=== PATIENT | female | born 1950 | race Caucasian/White ===

== ENCOUNTER 2019-10-17 12:45 | Outpatient (CLI) | payer MEDICARE, SELFPAY ==
--- NOTE | ~2019-10-17 | XR_ITS ---
EXAMINATION: XR chest 2V 10/17/2019 13:15 INDICATION: Acute bronchitis PROCEDURE: 2 view chest COMPARISON: No prior studies for comparison. FINDINGS: The lungs are clear. The lungs are hyperinflated which is consistent with, but not diagnost ic of chronic obstructive pulmonary disease. The cardiomediastinal silhouette is within normal limits . There are no pleural effusions. There is no pneumothorax suspected. IMPRESSION: 1: NO ACUTE CARDIOPULMONARY DISEASE. Reviewed, dictated and finalized at location [facility].
[2019-10-17 13:42] LABS: Basophils Absolute Auto 0.1 K/mm3 (0.0-0.1); Basophils Percent Auto 0.6 % (0.2-1.2); Eosinophils Absolute Auto 0.1 K/mm3 (0-0.3); Eosinophils Percent Auto 1.3 % (0-4.4); Hematocrit 40.2 % (37.0-47.0); Hemoglobin 13.2 g/dL (12.0-15.0); Immature Granulocyte Absolute 0.04 K/mm3 (0.00-0.031); Immature Granulocyte Percent A 0.4 % (0-0.5); Lymphocytes Absolute Auto 2.97 K/mm3 (0.9-3.2); Lymphocytes Percent Auto 27.1 % (18.3-44.2); Mean Corpuscular HGB Conc 32.8 g/dl (32-36); Mean Corpuscular Volume 94.4 fl (80-100); Mean Platelet Volume 9.4 fl (7.4-10.4); Monocytes Percent Auto 8.8 % (2.6-8.5); Neutrophils Absolute Auto 6.8 K/mm3 (1.3-6.7); Neutrophils Percent Auto 61.8 % (45.5-73.1); Platelet Count Result 335 k/mm3 (150-375); Red Blood Count 4.26 M/mm3 (4.2-5.4); Red Cell Distribution Width 12.6 % (11.5-14.5)
== END 2019-10-17 12:46 | disposition home or self-care (01) ==
LOC: ANHIMG 12:57
PROVIDERS: PCP Family Medicine; Visit Provider Physician Assistant
DX: J20.8 Acute bronchitis due to other specified organisms (principal)
CPT/HCPCS: 36415; 71046; 85025

== ENCOUNTER 2020-03-25 10:33 | Outpatient (CLI) | payer MEDICARE, SELFPAY ==
[2020-03-25 11:01] LABS: Hemoglobin 14.3 g/dL (12.0-15.0); Mean Corpuscular HGB Conc 33.3 g/dl (32-36); Mean Corpuscular Hemoglobin 31.5 pg (26-34); Mean Corpuscular Volume 94.7 fl (80-100); Mean Platelet Volume 9.3 fl (7.4-10.4); Platelet Count Result 283 k/mm3 (150-375); Red Blood Count 4.54 M/mm3 (4.2-5.4); Red Cell Distribution Width 12.8 % (11.5-14.5); White Blood Count 7.5 K/mm3 (4.5-10.0)
[2020-03-25 11:20] LABS: Alanine Aminotransferase 18 U/L (4-35); Albumin Level 4.5 g/dL (3.5-5.1); Alkaline Phosphatase 95 U/L (38-126); Amylase 85 U/L (30-110); Anion Gap 7 mmol/L (8-16); Aspartate Amino Transferase 26 U/L (14-36); Bilirubin,Total 0.4 mg/dL (0.2-1.3); Blood Urea Nitrogen 12 mg/dL (7-17); Calcium 9.3 mg/dL (8.4-10.2); Carbon Dioxide 29 mmol/L (22-30); Chloride 103 mmol/L (98-107); Estimated Glomerular Filt Rate > 60; Glucose 102 mg/dL (65-105); Potassium 4.4 mmol/L (3.4-5.0); Sodium 139 mmol/L (137-145)
== END 2020-03-25 10:34 | disposition home or self-care (01) ==
PROVIDERS: PCP Family Medicine; Visit Provider Internal Medicine Gastroenterology
DX: R10.13 Epigastric pain (principal); R63.4 Abnormal weight loss
CPT/HCPCS: 36415; 80053; 82150; 85027

== ENCOUNTER 2020-04-13 01:18 | Outpatient (CLI) | payer MEDICARE, SELFPAY ==
[2020-04-13 18:13] LABS: SARS-CoV-2 RNA PCR Negative
== END 2020-04-13 01:19 | disposition home or self-care (01) ==
LOC: ANHCOVIDDT 01:18
PROVIDERS: PCP Family Medicine; Visit Provider Internal Medicine Gastroenterology
DX: Z01.812 Encounter for preprocedural laboratory examination (principal); Z20.828 Contact with and (suspected) exposure to other viral communicable diseases
CPT/HCPCS: 87635; C9803; U0003

== ENCOUNTER 2020-04-16 01:27 | Day surgery (SDC) | payer MEDICARE, SELFPAY ==
[2020-04-04 11:54] VITALS: BMI 18.8
[2020-04-16 10:41] VITALS: BP 141/70; PULSE 78; RESP 16; TEMP 36.6; O2SAT 97
[2020-04-16] MEDS: LACTATED RINGERS 1,000 ML 150 ML IV CONT (10:52)
--- NOTE | 2020-04-16 11:20 | WPDANESEPPF ---
Anes - Initial Pre Proc Eval Procedure: Operation Date: 04/16/20 11:45 Proposed Procedures p Esophagogastroduodenoscopy & Screening Colonoscopy - Peyman Perdue MD Date/Time: 04/16/20 11:20 Surgeon: Peyman Perdue MD Pre Op Diagnosis: Epigastric Pain/ Neoplasm Screening Patient Data Age: 69 Gender: F Height: 1.6 m Weight: 45.6 kg Last Vital Signs Temp 36.6 C 04/16/20 10:41 Pulse 78 04/16/20 10:41 Resp 16 04/16/20 10:41 BP 141/70 H 04/16/20 10:41 Pulse Ox 97 04/16/20 10:41 Allergies Allergy/AdvReac Type Severity Reaction Status Date / Time No Known Drug Allergies Allergy Unknown none Verified 04/16/20 10:39 Home Medications Medication Instructions Recorded Confirmed Type aspirin 81 mg tablet,delayed 81 mg PO DAILY #1 tablet 06/14/19 04/16/20 Rx release calcium polycarbophil 500 mg 500 mg PO DAILY #1 tablet 06/14/19 04/16/20 Rx chewable tablet cholecalciferol (vitamin D3) 50 2,000 unit PO DAILY #1 tablet 06/14/19 04/16/20 Rx mcg (2,000 unit) tablet escitalopram oxalate 20 mg tablet 20 mg PO DAILY #1 tablet 06/14/19 04/16/20 Rx fluticasone propionate 50 1 spray NASAL BID #9.9 ml 06/14/19 04/16/20 Rx mcg/actuation nasal spray,suspension lamotrigine 150 mg tablet 150 mg PO DAILY #1 tablet 06/14/19 04/16/20 Rx magnesium 30 mg tablet 30 mg PO DAILY #1 tablet 06/14/19 04/16/20 Rx montelukast 10 mg tablet 10 mg PO DAILY #1 tablet 06/14/19 04/16/20 Rx omega-3 fatty acids 1,000 mg 1,000 mg PO DAILY #1 cap 06/14/19 04/16/20 Rx capsule alprazolam 0.5 mg tablet 0.5 mg PO BID PRN #60 tablet 03/12/20 04/16/20 Rx omeprazole 40 mg capsule,delayed 40 mg PO DAILY #30 cap 03/25/20 04/16/20 Rx release peg 3350-electrolytes 236 240 ml PO Q10M #4000 ml 04/03/20 04/16/20 Rx gram-22.74 gram-6.74 gram-5.86 gram solution Patient hx anesthesia problems: none Family hx anesthesia problems: none PMFSH Past Medical History Medical History (Updated 03/25/20 @ 10:19 by Peyman Perdue MD) Allergic rhinitis Constipation Early satiety Epigastric pain Mild claudication right leg Mixed anxiety and depressive disorder Nausea Peripheral artery insufficiency Postmenopausal state Tobacco abuse Vitamin B12 deficiency Weight loss Social History Social History Smoking status: Heavy tobacco smoker Tobacco type: cigarettes Second hand tobacco smoke exposure: Yes Additional smoking assessment comments: consumes 20-39 cigarettes daily Alcohol intake: current Substance use: never Substance use type: does not use Gender identity (if verbalized by the patient): Female Anes - Eval Final PreProcedure Day of Procedure 04/16/20 11:20 Patient weight: normal Heart: regular rate and rhythm Lungs: clear to auscultation and normal air movement Airway: Mallampati scale class II Neurological: alert and oriented Last oral intake: >/= 8 hours ASA classification: III Emergent: no Anesthetic plan: proceed Anesthesia type and monitoring: general GIVS Informed Consent: The patient's anesthetic plan and its attendant risks and benefits were discussed with the patient/family/POA. Questions were solicited and answers provided to the satisfaction of the patient/family/POA.
--- NOTE | 2020-04-16 11:35 | WPDHPUPDATE1 ---
History and Physical Update Update Date/Time: 04/16/20 11:35 History and Physical has been reviewed, including an updated exam of the patient. There are NO changes in the patient's condition. Risks, benefits, and alternatives have been discussed and questions answered. Patient agrees to proceed with procedure.
[2020-04-16 11:56] VITALS: BP 93/53; PULSE 66; RESP 13; O2SAT 98
[2020-04-16 12:06] VITALS: BP 99/61; PULSE 65; RESP 16; O2SAT 99
[2020-04-16 12:16] VITALS: BP 120/70; PULSE 66; RESP 15; O2SAT 98
== END 2020-04-16 12:30 | disposition home or self-care (01) ==
PROVIDERS: PCP Family Medicine; Visit Provider Internal Medicine Gastroenterology
PROC: 0DJ08ZZ Inspection of Upper Intestinal Tract, Via Natural or Artificial Opening Endoscopic (ICD-10-PCS; CPT 43235; principal; 2020-04-16 11:45)
DX: Z12.11 Encounter for screening for malignant neoplasm of colon (principal); D12.2 Benign neoplasm of ascending colon; K57.30 Diverticulosis of large intestine without perforation or abscess without bleeding; K20.9 Esophagitis, unspecified; K21.9 Gastro-esophageal reflux disease without esophagitis; F41.8 Other specified anxiety disorders; F17.210 Nicotine dependence, cigarettes, uncomplicated; Z79.82 Long term (current) use of aspirin; Z79.899 Other long term (current) drug therapy
CPT/HCPCS: 45385; 43239; 88305; J2704; J7120

== ENCOUNTER 2020-12-09 09:30 | Outpatient (CLI) | payer MEDICARE, SELFPAY ==
--- NOTE | 2020-12-18 12:46 | WPDHOLTEREM ---
Holter/Event Monitor Holter/Event Monitor Date of procedure: 12/09/20 Procedure Type: 48 hour holter monitor Indications: Palpitations Conclusion: 1. 48 hour holter monitor on 12/09/20. 2. Predominant rhythm is sinus rhythm. HR range 62-140 bpm; average HR 94. 3. There are 129 premature supraventricular complexes and 2 supraventricular couplets. There are 2 episodes of atrial tachycardia, fastest at 218 bpm and longest lasting 4 beats. 4. There are 137 premature ventricular complexes and 1 ventricular couplet. No ventricular tachycardia. 5. No sinoatrial or atrioventricular blocks. No significant pauses greater than seconds. 6. No symptoms available for correlation.
== END 2020-12-09 09:31 | disposition home or self-care (01) ==
PROVIDERS: PCP Internal Medicine; Visit Provider Internal Medicine
DX: R00.2 Palpitations (principal)
CPT/HCPCS: 93225; 93226

== ENCOUNTER 2020-12-12 06:35 | Outpatient (CLI) | payer MEDICARE, SELFPAY ==
--- NOTE | 2020-12-12 06:43 | ECHO_ITS ---
Patient Info Name: Shanika Fisher Age: 70 years : 1950 Gender: Female Ht: 63 in Wt: 110 lbs BSA: 1.49 m2 HR: 74 bpm BP: 139 / 71 mmHg Technical Quality: Fair Exam Date: 12/12/2020 7:07 AM Exam Location: [facility] Patient Status: Outpatient Admit Date: 12/12/2020 Staff Ordering Physician: Delonte Lloyd DO Transfer Driver: Ngoc Peoples RDCS Attending Provider: Delonte Lloyd DO Referring Physician: Gabino SOLO; Exam Type: CA echo doppler color flow Study Info Indications R94.31 - Abnormal electrocardiogram ECG EKG Complete two-dimensional, color flow and Doppler transthoracic echocardiogram is performed. Summary 1. Complete two-dimensional, color flow and Doppler transthoracic echocardiogram is performed. 2. Left ventricular chamber dimension is normal. 3. Left ventricular systolic function is normal, estimated at 60-65%. 4. The left ventricular diastolic function is grade I diastolic dysfunction. 5. E/e' 11 is mildly elevated. 6. There is trace tricuspid valve regurgitation. 7. No pulmonary hypertension, estimated pulmonary arterial systolic pressure is 36 mmHg. 8. Normal inferior vena cava with <50% collapse upon inspiration consistent with elevated right atrial pressure, 10 mmHg. Left Ventricle E/e' 11 is mildly elevated. Left ventricular chamber dimension is normal. Left ventricular systolic function is normal, estimated at 60-65%. The left ventricular diastolic function is grade I diastolic dysfunction. Right Ventricle Right ventricular chamber dimension is normal. Right ventricular systolic function is normal. Left Atria Left atrial chamber dimension is normal. Right Atria Right atrial chamber dimension is normal. Aortic Valve The aortic valve is trileaflet. There is no aortic valve stenosis. There is no aortic valve regurgitation. Pulmonic Valve There is no pulmonic regurgitation. Mitral Valve There is no mitral valve stenosis. There is no mitral valve regurgitation. Tricuspid Valve There is trace tricuspid valve regurgitation. No pulmonary hypertension, estimated pulmonary arterial systolic pressure is 36 mmHg. Pericardium/Pleural There is no pericardial effusion. Inferior Vena Cava Normal inferior vena cava with <50% collapse upon inspiration consistent with elevated right atrial pressure, 10 mmHg. Aorta The aortic root size at the sinus of Valsalva is normal. Left Ventricular Outflow Tract Name Value Normal LVOT 2D LVOT Diameter 1.9 cm LVOT Doppler LVOT Peak Gradient 5 mmHg LVOT Mean Gradient 3 mmHg LVOT VTI 23 cm LVOT VTI/AV VTI Ratio 0.9 LVOT Stroke Volume 66 ml LVOT CO 4.6 l/min LVOT CI 3.1 l/min/m2 Pulmonic Valve Name Value Normal
== END 2020-12-12 06:36 | disposition home or self-care (01) ==
PROVIDERS: PCP Internal Medicine; Visit Provider Internal Medicine
DX: R94.31 Abnormal electrocardiogram [ECG] [EKG] (principal)
CPT/HCPCS: 93306

== ENCOUNTER 2020-12-17 11:23 | Outpatient (CLI) | payer MEDICARE, SELFPAY ==
--- NOTE | ~2020-12-17 | CT_ITS ---
EXAMINATION: CT abdomen pelvis w con DATE: 12/17/2020 11:57 INDICATION: Abdominal pain TECHNIQUE: Computed tomography (CT) of the abdomen and pelvis was performed with 100 cc Omnipaque 350 intravenous contrast. Automated exposure control and iterative reconstruction technique were employe d. Exam dose: 161.38 mGy-cm total exam DLP. COMPARISON: None. FINDINGS: Prominent calcified right lower lobe pulmonary granuloma. Mild emphysematous changes. No in filtrate or consolidation in the lower lung zones. Normal heart size. Trace pericardial fluid. No ple ural effusion. No hepatic, splenic, pancreatic, and adrenal or renal space-occupying mass lesion is evident with the exception of a 5.5 mm left renal cyst. The gallbladder is present. No bile duct or pancreatic duct d ilatation. There are multiple calcified splenic granulomas. No splenomegaly. No urinary tract calculu s or hydroureteronephrosis. There is incomplete rotation of the right kidney with the renal pelvis di rected anteriorly. There is extensive atherosclerotic calcification of the abdominal aorta as well as calcification at t he origins of the celiac, superior mesenteric and renal arteries. There is no abdominal aortic aneury sm. No intraperitoneal or retroperitoneal or pelvic mass lesion or adenopathy or ascites is evident. There are prominent bilateral adnexal veins, especially on the left, with prominent left gonadal vein . Normal appendix. There are numerous diverticula of the left and right colon; no CT evidence of divert iculitis. No bowel obstruction, bowel wall thickening, pneumatosis or intraperitoneal free air. There is moderate diffuse thickening of the urinary bladder wall. Uterus and adnexal areas are unrema rkable except for bilateral prominence of the adnexal veins, especially on the left, and prominent le ft gonadal vein. There is severe degenerative disc disease at L2-3 and L4-5 and prominent degenerative change at the a pophyseal joints of the lumbar spine. Bilateral hip osteoarthritis. No suspicious osteolytic or osteoblastic lesions are noted.. IMPRESSION: 5.5 mm left renal cyst Prominent atherosclerosis Prominent adnexal veins, left greater than right, prominent left gonadal vein Normal appendix Diverticulosis of the colon; no CT evidence of diverticulitis Reviewed, dictated and finalized at [facility]. Reviewed, dictated and finalized at location [facility].
[2020-12-17 11:52] LABS: Estimated Glomerular Filt Rate > 60
== END 2020-12-17 11:24 | disposition home or self-care (01) ==
LOC: ANHIMG 11:28
PROVIDERS: PCP Internal Medicine; Visit Provider Clinical Nurse Specialist
DX: K57.30 Diverticulosis of large intestine without perforation or abscess without bleeding (principal); N28.1 Cyst of kidney, acquired
CPT/HCPCS: 74177; Q9967

== ENCOUNTER 2021-01-17 10:34 | Outpatient (CLI) | payer MEDICARE, SELFPAY ==
--- NOTE | ~2021-01-17 | NM_ITS ---
EXAM: NM gastric emptying study DATE: 01/17/2021 15:44 INDICATION: Nausea. TECHNIQUE: A gastric emptying study was performed using the methodology of Tri MAYERS, et al. J Nucl Med 2007; 48:568-572. The patient was given a meal consisting of 2 scrambled eggs labeled with 0.957 mCi Tc-99m sulfur colloid, 2 slices of toast, two packages of jam, and approximately 120 mL of water . Simultaneous anterior and posterior 1-min images of the abdomen were obtained with the patient supi ne at multiple time points over a total period of 4 hours. The geometric mean of anterior and posteri or views was determined, and the percentage retention was calculated for each time point. COMPARISON: CT abdomen and pelvis 12/17/2020 FINDINGS: Gastric retention of the radiotracer-labeled meal was 41%, 7%, and 3% at the 1-hour, 2-candie r, and 4-hour time points, respectively. With this technique, apparent rapid gastric emptying is sugg ested by <30% gastric retention at 1 hour. Delayed gastric emptying is defined by gastric retention o f >90% at 1 hour, >60% retention at 2 hours, or >10% retention at 4 hours. IMPRESSION: 1. Normal gastric emptying. Reviewed, dictated and finalized at location A. IMPRESSION: 1. Normal gastric emptying.
== END 2021-01-17 10:35 | disposition home or self-care (01) ==
PROVIDERS: PCP Internal Medicine; Visit Provider Nurse Practitioner Family
DX: R11.0 Nausea (principal); R68.81 Early satiety
CPT/HCPCS: 78264; A9541

== ENCOUNTER 2022-01-02 09:23 | Outpatient (CLI) | payer MEDICARE, SELFPAY ==
--- NOTE | ~2022-01-02 | CT_ITS ---
EXAMINATION: CT lung screening DATE: 01/02/2022 09:41 INDICATION: Z87.891 - Personal history of nicotine dependence TECHNIQUE: Computed tomography (CT) of the chest was performed without intravenous contrast. Addition al 3D reconstructions utilizing coronal maximum intensity projection (MIP) were performed. Automated exposure control and iterative reconstruction technique were employed. The dose-length product was 65 .70 mGy-cm. COMPARISON: None FINDINGS: Mild emphysema with mild right apical pleural-parenchymal scarring. Large calcified right lower lobe nodule along with calcified right hilar and infrahilar lymph nodes, multiple splenic calcific lesions and a few hepatic calcific lesions, all consistent with old granulomatous disease. No suspicious non calcified pulmonary nodules, pneumonia, pulmonary edema or pleural effusion. Heart size is normal. At herosclerotic coronary artery calcific lesion. No pericardial effusion. Thoracic aorta is normal in c aliber. No pathologically enlarged thoracic lymphadenopathy. Severe disc height loss with Modic type III sclerotic endplate changes at L2-L3. Chronic mild compression fractures at T7 and T8. IMPRESSION: 1. Lung-RADS category 1: Negative. Continue annual screening with noncontrast low-dose chest CT in 12 months. Reviewed, dictated and finalized at location B. IMPRESSION: 1. Lung-RADS category 1: Negative. Continue annual screening with noncontrast l ow-dose chest CT in 12 months.
== END 2022-01-02 09:24 | disposition home or self-care (01) ==
LOC: ANHIMG 09:25
PROVIDERS: PCP Internal Medicine; Visit Provider Internal Medicine
DX: Z12.2 Encounter for screening for malignant neoplasm of respiratory organs (principal); Z87.891 Personal history of nicotine dependence
CPT/HCPCS: 71271

== ENCOUNTER → 2022-01-13 00:31 | Outpatient (CLI) | payer MEDICARE, SELFPAY ==
[2022-01-13 12:25] LABS: SARS-CoV-2 RNA PCR Negative
== END ==
PROVIDERS: PCP Internal Medicine; Visit Provider Nurse Practitioner
DX: R05.9 Cough, unspecified (principal); Z20.822 Contact with and (suspected) exposure to COVID-19
CPT/HCPCS: C9803; U0003; U0005

== ENCOUNTER 2022-01-14 09:44 | Outpatient (CLI) | payer MEDICARE, SELFPAY ==
--- NOTE | ~2022-01-14 | XR_ITS ---
XR chest 2V DATE: 01/14/2022 09:56 INDICATION: Cough TECHNIQUE: PA and lateral views COMPARISON: 01/02/2022 CT lung screening 10/16/2021 view chest FINDINGS: Bilateral hyperinflation and relative flattening the diaphragm, consistent with COPD. No pulmonary infiltrate or consolidation, pleural effusion or pulmonary vascular congestion or pneumo thorax. Normal heart size. Aortic arch calcification. No hilar or mediastinal enlargement. Osteopenia. IMPRESSION: COPD Aortic calcification Osteopenia Reviewed, dictated and finalized at location A.
== END 2022-01-14 09:45 | disposition home or self-care (01) ==
PROVIDERS: PCP Internal Medicine; Visit Provider Clinical Nurse Specialist
DX: R05.9 Cough, unspecified (principal); J44.9 Chronic obstructive pulmonary disease, unspecified; I70.0 Atherosclerosis of aorta; M85.89 Other specified disorders of bone density and structure, multiple sites
CPT/HCPCS: 71046

== ENCOUNTER → 2022-04-20 12:15 | Outpatient (CLI) | payer MEDICARE, SELFPAY ==
--- NOTE | ~2022-04-20 | XR_ITS ---
EXAM: XR lumbar spine 2-3V DATE: 04/20/2022 12:43 HISTORY: M54.50 - Low back pain, unspecified . COMPARISON: CT abdomen and pelvis 12/17/2020. FINDINGS: Lumbar scoliosis. Osteopenia. 5 nonrib-bearing lumbar-type vertebral bodies. Pedicles intac t. 2 mm retrolisthesis of L2 on L3. Vertebral body heights preserved. Multilevel disc space narrowing and marginal osteophytosis with reactive endplate changes, severe at L2-3 and L4-5. Lower lumbar fac et hypertrophy and sclerosis. No fracture or dislocation. Atherosclerotic aortic calcification, witho ut evident aneurysm. Right lower lobe calcified granuloma. Ingested radiopaque material in the left c olon. IMPRESSION: Lumbar scoliosis. Multilevel severe degenerative disc disease and severe lower lumbar fac et arthropathy. Reviewed, dictated and finalized at location K. IMPRESSION: Lumbar scoliosis. Multilevel severe degenerative disc disease and s evere lower lumbar facet arthropathy.
== END ==
PROVIDERS: PCP Internal Medicine; Visit Provider Internal Medicine
DX: M41.9 Scoliosis, unspecified (principal); M51.36 Other intervertebral disc degeneration, lumbar region
CPT/HCPCS: 72100

== ENCOUNTER 2022-06-04 15:57 | Outpatient (CLI) | payer MEDICARE, SELFPAY ==
--- NOTE | ~2022-06-04 | DEXA_ITS ---
Bone Density Report Name: JASKARAN SEGAL Age: 71 Sex: Female Ethnicity: White Date of : 1950 Indication: postmenopausal; screening for osteoporosis; height loss; Referring Provider: OCTAVIO MICHELLE Study: Bone densitometry was performed. Exam Date: June 04, 2022 Accession number: [id number] Bone Density: Region BMD T-score Z-score Classification AP Spine(L1-L4) 1.036 -0.1 2.0 Normal Femoral Neck (Left) 0.611 -2.1 -0.3 Osteopenia Total Hip (Left) 0.639 -2.5 -0.9 Osteoporosis Femoral Neck (Right) 0.561 -2.6 -0.8 Osteoporosis Total Hip (Right) 0.635 -2.5 -1.0 Osteoporosis Total Hip Mean 0.637 -2.5 -1.0 Osteoporosis World Health Organization criteria for BMD impression classify patients as: Normal (T-score at or above -1.0), Osteopenia (T-score between -1.0 and -2.5), or Osteoporosis (T-score at or below -2.5). 10-year Fracture Risk: FRAX not reported because: Some T-score for Spine Total or Hip Total or Femoral Neck at or below -2.5 Clinical Information Provided by Patient: Smokes Has used the following medications: Vitamin D Patient maximum height was 63.75 Menopause Age: 51 Onset of menses at age 13 Number of children 2 Impression: The patient has osteoporosis, based on the Right Femoral Neck T-score. The patient has risk factors, including: smoking. Discussion: INCREASED RISK OF FRACTURE. BONE DENSITY IS UNDESIRABLY LOW AT ONE OR MORE SKELETAL SITES, CONSISTENT WITH POSTMENOPAUSAL OSTEOPOROSIS. This patient's lowest T-score meets the World Health Organization's (WHO) criteria for osteoporosis at one or more sites (T-score -2.5 or below). In untreated patients, the risk of osteoporotic fracture increases approximately two-fold for each 1.0 SD decrease in T-score. Low bone density is not the only risk factor for fracture; also consider factors such as patient's age, frailty or poor health, risk of falling, risk of injury, previous osteoporotic fracture, family history of osteoporosis, cigarette smoking, low body weight, etc. Not everyone with low bone mineral density has osteoporosis; osteomalacia and other metabolic bone disorders should also be considered. Patients who have osteoporosis should be evaluated for specific diseases and conditions (secondary causes) that may cause or contribute to bone loss. The [place] [employer]ocrinologists (AACE) and National Osteoporosis Foundation (NOF) recommend pharmacologic intervention for all postmenopausal women whose T-score is in this range. The patient should follow a healthful lifestyle (good nutrition with adequate calcium and vitamin D, and appropriate weight-bearing exercise). Follow-Up: Consider a repeat BMD and Vertebral Fracture Assessment (VFA) exam in 2 years or sooner if medically necessary, to reassess
== END 2022-06-04 15:58 | disposition home or self-care (01) ==
PROVIDERS: PCP Internal Medicine; Visit Provider Internal Medicine
DX: Z78.0 Asymptomatic menopausal state (principal); M85.852 Other specified disorders of bone density and structure, left thigh; M81.0 Age-related osteoporosis without current pathological fracture
CPT/HCPCS: 77080

== ENCOUNTER 2022-09-15 12:12 | Outpatient (CLI) | payer MEDICARE, SELFPAY ==
--- NOTE | ~2022-09-15 | XR_ITS ---
Supine and upright views of the abdomen Clinical history: Left kidney stone Findings: Bowel gas pattern is nonspecific. No evidence for obstruction or free air. Probable calcifi ed splenic granulomas. No definite renal stones seen. There is mild levoscoliosis of the lumbar spine with degenerative disc narrowing at L2-L3.. Impression: No definite renal stone identified. Reviewed, dictated and finalized at [facility]. [employer]AN [employer]IVER Impression: No definite renal stone identified.
== END 2022-09-15 12:13 | disposition home or self-care (01) ==
PROVIDERS: PCP Internal Medicine; Visit Provider Urology
DX: N20.0 Calculus of kidney (principal)
CPT/HCPCS: 74018

== ENCOUNTER 2024-11-30 11:23 | Outpatient (CLI) | payer MEDICARE, SELFPAY ==
--- NOTE | ~2024-11-30 | XR_ITS ---
Supine and upright views of the abdomen Clinical history: Abdominal pain COMPARISON: 09/15/2022 Findings: Bowel gas pattern is nonspecific. No evidence for obstruction or free air. Stable densely c alcified round lesion just beneath the right hemidiaphragm.. Stable levoscoliosis and degenerative ch erin of the lumbar spine.. Impression: No acute abnormality. No definite renal stone. Stable densely calcified lesion just below the right hemidiaphragm. Reviewed, dictated and finalized at location M. Impression: No acute abnormality. No definite renal stone. Stable densely calcified lesion just below the right hemidiaphragm.
--- OUTSIDE RECORDS SUMMARY | 2024-11-30 13:02 | XMS_ITS | Data Portability ---
Author Organization [facility] [facility] Address [address] [place] [address] Care Team Providers Care Learning Coordinator Name Role Phone TETO GARCIA Primary Care Provider Assessment No assessment recorded. Plan of Treatment Reminders Order Date Submit Date Provider Last Modified By Organization Details Last Modified Time Details Appointments None recorde d. Lab CBC w/ auto diff 2019 020 [facility], [address] [place] [address], [facility] [address], [place], [address], 0 10:54:19 fecal occult blood, immunoa ssay, stool 2019 020 [facility], [address] [place] [address], [address], [place], [address], 0 12:40:35 Referral None recorde d. Procedures None recorde d. Surgeries None recorde d. Imaging XR, chest, 2 view 2019 020 [facility], [address], [facility] [address], [place], [address], 0 10:52:24 Medication Orders azithro mycin 500 mg tablet 2019 020 [facility], [address] [place] [address], [address], [place], [address], 0 12:26:02 Patient TargetsNo targets recorded. Patient InstructionsNo instructions recorded. Reason for Referral None Reported. Results Created Date Observation Date Name Description Value Unit Range Abnormal Flag Note LastModifiedBy Organization Detail LastModifiedTime 10/18/19 20 10/17/2019 XR, chest , 2 view No observ ation record ed. [facility] [address], [place], [address], 10/18/2019 11:16:39 Result Notes None recorded. Procedures Surgical History Date Name Laterality Status Provider Name and Address Organization Details Recorded Time mastoidotomy completed Ashley Patton MA [facility] 10/17/2019 11:55:58 Breast Surgery completed Ashley Patton MA [facility] 10/17/2019 11:56:23 Imaging Results Imaging Date Name Status LastModified by Organiz ation Details LastModified Time 10/17/2019 XR, chest, 2 view completed [facility] [address], [place], [address], 10/18/2019 11:16:39 Procedure Notes None recorded. Medical Equipment None Reported. Allergies No known drug allergies Medications Name Sig Start Date Stop Date Status Note LastModified by Organization Details LastModified Time amoxicillin 500 mg capsule active Not Available Not Available N ot Available azithromycin 250 mg tablet active Not Available Not Availabl e Not Available clonazepam 0.5 mg tablet active Not Available Not Available No t Available acetaminophen 300 mg-codeine 30 mg tablet active Not Available Not Available Not Available alprazolam 0.5 mg tablet active Not Available Not Available No t Available Lamictal 150 mg tablet Take 1 tablet every day by oral route. active Not Available Not Available No t Available montelukast 10 mg tablet active Not Available Not Available No t Available azithromycin 500 mg tablet Take 1 tablet every day by oral route for 3 days. 2019 active Not Available Not Available Not Avai lable Lexapro 20 mg tablet Take 1 tablet every day by oral route. active Not Available Not Available No t Available Probiotic (B. coagulans) 1 daily active Not Available Not Available N ot Available Vitals Date Recorded Body weight Body height Body mass index (BMI) Oxygen saturation Oxygen saturation in Arterial blood by Pulse oximetry Heart rate Body temperature Systolic blood pressure Diastolic blood pressure Provider Name and Address Organization Details Last Updated DateTime 0 35012.1 6 g 160.02 cm 19.5 kg/m2 96 % 96 % 104 /min 97.9 [degF] 116 mm[Hg] 70 mm[Hg] Ashley Patton MA [facility] 0 11:59:34 Social History Question Answer Notes LastModified by Organizat ion Details LastModified Time Tobacco Smoking Status Current Every Day Smoker Ashley Patton MA null, [facility] 10/17/2019 11:55:09 What Was The Date Of Your Most Recent Tobacco Screening? 10/17/2019 Information not available 10/17/2019 How Much Tobacco Do You Smoke? 1 PPD Information not available 10/17/2019 On What Date Was Tobacco Cessation Counseling Provided? 10/17/2019 Information not available 10/17/2019 How Many Years Have You Smoked Tobacco? 40 Information not available 10/17/2019 Sex: Unknown Functional Status None recorded. Mental Status None recorded. Family History Relationship Description Onset Age of this Age Resolved Age Notes LastModified by Organization Details LastModified Time Father Heart disease bbertoglioma Not available 05/2020 11:56:41 Mother Heart disease bbertoglioma Not available 05/2020 11:56:41 Mother Diabetes mellitus bbertoglioma Not available 05/2020 11:56:53 Mother Hypertensive disorder bbertoglioma Not available 05/2020 11:57:03 Mother Hypercholest erolemia bbertoglioma Not available 05/2020 11:57:21 Medical History Condition Response Coronary Artery Disease N Other N Atrial Fibrillation N High Blood Pressure N Thyroid Problems N Kidney or Bladder Problems N Depression N COPD N Blood Clots N GI Problems N Skin Problems N Eating Disorder N Anemia N Heart Attack ([place]) N Diabetes N Anxiety Disorder Y Muscle, Joint, or Bone Problems N Seizures/Epilepsy N Acid Reflux (GERD) N Cancer N Stroke N Allergies N Asthma N ADHD N Substance Abuse N High Cholesterol N Hepatitis N Liver Disease N Schizophrenia N Headaches N Osteoporosis N Heart Failure N Gynecological HistoryNo gynecological history recorded. Obstetrics History GPAL:G 0 P 0 0 0 0 Past Encounters Encounter ID Performer Location Encounter Start Date Encounter Closed Date Diagnosis/Indication Diagnosis SNOMED-CT Code Diagnosis ICD10 Code Diagnosis Note [id number] Teto Garcia PA-C [facility] [address] [place] [address] 10/17/2019 11:38:54 10/17/2019 12:51:10 Screening for malignant neoplasm of colon 770698367 Z12.11 Acute bron chitis with bronchospasm 03834008 J20.8 Health Concerns Section Related Observation LastModified by Organization Detai ls LastModified Time None Recorded Concern Status LastModified by Organization Details LastModified Time None Recorded Advance Directives Directive None Recorded Payers Encounter Date Sequence Insurance Name Policy Number Policy Leon Covered Member ID Leon Member ID Guarantor Name 10/17/2019 1 [place] Shanika Fisher [id number] Shanika Fisher 10/17/2019 2 [place] [id number] Shanika Fisher [id number] Shanika Fisher Notes Date Note Type Note Provider Name and Address Organization Details Recorded Time 10/17/2019 text/html last week started feeling really tired...started coughing..went to urgent care.. told nothing was wrong. otc symptom relief.. Teto Garcia PA-C Attn: Accounting,[address] [facility], [place], [address], [facility] 10/17/2019 12:28:10 OBGyn Episode No OBEpisode recorded.
--- OUTSIDE RECORDS SUMMARY | 2024-11-30 13:03 | XMS_ITS | Clinical Summary ---
Author Organization [facility] Virtual Care Address [address] [place] [phone] Phone Care Team Providers Care 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 Name Role Phone Israel Frazier MD Primary Care Provide r Raúl Rose TRUCKLOAD OWNER OPERATOR Unavailable + [phone] Marlen Esposito NP Unavailable [phone] Bola Logan MD Unavailable Shirley Callahan MD Unavailable [phone] Allergies No known active allergies Medications simethicone (MYLICON) 125 mg chewable tablet Take 1 tablet (125 mg total) by mouth 4 (four) times a day as needed (cramping/b loating/gas /nausea) 120 tablet 5 08/31/19 24 Active mirtazapine (Remeron) 30 mg tablet Take 1 tablet (30 mg total) by mouth nightly 90 tablet 3 09/01/19 24 Active lamoTRIgine (LaMICtal) 100 mg tablet Take 1 tablet (100 mg total) by mouth daily 30 tablet 11 02/23/20 24 025 Active chlorzoxazone (PARAFON FORTE) 500 mg tablet Take 1 tablet by mouth four times daily as needed for muscle spasms. 120 tablet 1 05/10/20 24 Active calcium carbonate-vitamin D3 (CALTRATE 600 + D) 1500 mg (600 mg elemental) -400 units per tablet Take 1 tablet by mouth daily Active QUEtiapine (SEROquel) 25 mg tablet Take 0.5 tablets (12.5 mg total) by mouth 2 (two) times a day Active docusate sodium (Colace) 100 mg capsuleIndications :constipation Take 1 capsule (100 mg total) by mouth 2 (two) times a day for 14 days 28 capsule 05/22/20 24 Active clonazePAM (KlonoPIN) 0.5 mg tablet Take 1 tablet (0.5 mg total) by mouth 3 (three) times a day as needed for anxiety 90 tablet 5 06/28/20 24 025 Active lamoTRIgine (LaMICtal) 25 mg tablet Take 2 tablets (50 mg total) by mouth daily 07/10/20 24 Active albuterol HFA (PROVENTIL HFA,VENTOLIN HFA,PROAIR HFA) 90 mcg/actuation inhalerIndications :Acute cough Inhale 2 puffs every 6 (six) hours as needed for wheezing for up to 7 days 1 each 4 07/25/20 24 Active atenoloL (TENORMIN) 25 mg tablet Take 1 tablet by mouth once daily 90 tablet 4 09/13/19 25 Active benzonatate (TESSALON) 100 mg capsuleIndications :Cough Take 1 capsule (100 mg total) by mouth 3 (three) times a day as needed for cough 42 capsule 09/18/19 25 Active ondansetron ODT (ZOFRAN-ODT) 4 mg disintegrating tablet Take 1 tablet (4 mg total) by mouth every 6 (six) hours as needed for nausea or vomiting 20 tablet 10/26/19 25 Active escitalopram (Lexapro) 20 mg tablet Take 1 tablet (20 mg total) by mouth daily 30 tablet 11/02/19 25 026 Active venlafaxine XR (EFFEXOR-XR) 37.5 mg 24 hr capsule Take 1 capsule (37.5 mg total) by mouth daily 30 capsule 08/23/19 25 025 Discontinued escitalopram (Lexapro) 10 mg tablet Take 1 tablet (10 mg total) by mouth daily 30 tablet 08/23/19 25 025 Discontinued Active Problems Problem Noted Date Diagnosed Date Dyspepsia 10/25/2024 Acute bronchitis due to other specified organism s 09/18/2024 Grief 08/24/2024 Assessment & Plan (08/24/2024 8:26 AM ELECTRIC TRUCKER): Recent of her sister by lung cancer. Empathy and validation provided. Underweight 06/28/2024 Recurrent major depressive disorder, in partial remission 06/28/2024 S/P laparoscopic cholecystectomy 05/30/2024 Sarcopenia 03/04/2024 Assessment & Plan (07/09/2024 10:16 PM ELECTRIC TRUCKER): Physical therapy referral provided. Assessment & Plan (03/04/2024 5:49 PM CDT): Physical therapy referral provided. Osteopenia of necks of both femurs 03/04/2024 Assessment & Plan (03/04/2024 5:49 PM CDT): Referred for physical therapy to strengthen muscles and bones. Persistent depressive disorder 12/05/2023 Assessment & Plan (11/13/2024 6:26 AM CDT): Chronic condition, stable symptoms. Continue current management. Monitor at interval. Assessment & Plan (08/23/2024 10:18 AM ELECTRIC TRUCKER): Chronic condition, stable symptoms. Continue current management. Monitor at interval. Assessment & Plan (07/09/2024 10:15 PM ELECTRIC TRUCKER): Chronic condition, stable symptoms. Continue current management. Monitor at interval. Assessment & Plan (05/17/2024 9:33 AM CDT): Chronic condition, stable symptoms, responded well to lamotrigine 50 mg daily, titrate up to 100 mg daily. Monitor at interval. Assessment & Plan (03/04/2024 5:50 PM CDT): Chronic condition, stable symptoms, responded well to lamotrigine 50 mg daily, titrate up to 100 mg daily. Monitor at interval. Assessment & Plan (01/03/2024 6:17 PM CDT): Chronic, persistent, but functioning at or close to baseline at this time. Denies any active suicidal ideation. Continue lamotrigine 25 mg daily. Continue Lexapro. Continue to monitor. Assessment & Plan (12/05/2023 6:43 PM CDT): Chronic, persistent. Start lamotrigine 25 mg daily and increase to 50 mg in two weeks. Monitor at interval. Vitamin D deficiency 12/05/2023 Assessment & Plan (12/05/2023 6:43 PM CDT): Check vitamin-D level Other chronic pain 10/13/2023 Lumbar spondylosis 10/13/2023 Spinal stenosis of lumbar re gion with neurogenic claudication 10/13/2023 Fibrocystic breast changes of both breasts 08/19 Irritable bowel syndrome wit h both constipation and diarrhea 04/01/2023 Epigastric pain 04/01/2023 Tubular adenoma of colon 04/01/2023 Nausea and vomiting 04/01/2023 Abnormal weight loss 04/01/2023 Weight loss 03/19/2023 Diarrhea 03/19/2023 Common bile duct dilation 02/18/2023 Exercise counseling 12/14/2022 Assessment & Plan (12/14/2022 10:17 AM CDT): Start walking at the track behind your house and do a mile per day. Try to initiate a conversation with someone at the park. Tobacco abuse 09/24/2022 Mild episode of recurrent major depressive disor fercho 05/04/2022 Assessment & Plan (09/01/2023 10:42 AM ELECTRIC TRUCKER): Chronic, stable. Depressive symptoms are well controlled on current medication regimen. Tolerating medications without any reported side effects. The patient denies active suicidal and homicidal ideation. The following changes were made at today's appointment: none Reevaluate treatment/symptoms at interval per scheduled appointment. Assessment & Plan (06/23/2023 10:12 AM ELECTRIC TRUCKER): Chronic, stable. Depressive symptoms are well controlled on current medication regimen. Tolerating medications without any reported side effects. The patient denies active suicidal and homicidal ideation. The following changes were made at today's appointment: none Reevaluate treatment/symptoms at interval per scheduled appointment. Assessment & Plan (04/14/2023 1:28 PM CDT): Chronic, stable. Depressive symptoms are well controlled on current medication regimen. Tolerating medications without any reported side effects. The patient denies active suicidal and homicidal ideation. The following changes were made at today's appointment: none Reevaluate treatment/symptoms at interval per scheduled appointment. Assessment & Plan (01/28/2023 12:07 PM CDT): Chronic, stable. Depressive symptoms are well controlled on current medication regimen. Tolerating medications without any reported side effects. The patient denies active suicidal and homicidal ideation. The following changes were made at today's appointment: Lamotrigine 25 mg daily Reevaluate treatment/symptoms at interval per scheduled appointment. Assessment & Plan (12/14/2022 9:53 AM CDT): Chronic, stable. Depressive symptoms are well controlled on current medication regimen. Tolerating medications without any reported side effects. The patient denies active suicidal and homicidal ideation. The following changes were made at today's appointment: Lamotrigine 25 mg daily Reevaluate treatment/symptoms at interval per scheduled appointment. Assessment & Plan (10/09/2022 11:04 AM ELECTRIC TRUCKER): Chronic, stable. Depressive symptoms are well controlled on current medication regimen. Tolerating medications without any reported side effects. The patient denies active suicidal and homicidal ideation. The following changes were made at today's appointment:none Reevaluate treatment/symptoms at interval per scheduled appointment. Assessment & Plan (09/17/2022 7:25 AM ELECTRIC TRUCKER): Chronic condition, persistent symptoms, but functioning at or close to baseline at this time. Symptoms are reasonably well controlled on current medication regimen. The patient does not endorse any active suicidal ideation. Medication changes today: None Ongoing management to be provided as discussed and at interval as planned. Assessment & Plan (07/17/2022 10:39 AM ELECTRIC TRUCKER): Chronic, stable. Depressive symptoms are well controlled on current medication regimen. Tolerating medications without any reported side effects. The patient denies active suicidal and homicidal ideation. The following changes were made at today's appointment: none Reevaluate treatment/symptoms at interval per scheduled appointment. Assessment & Plan (05/04/2022 4:40 PM CDT): Acute, persistent.- denies any active SI. Increase Lexapro to target anxiety (and depressive sxs). Continue to monitor. Unintentional weight loss 04/03/2022 Assessment & Plan (01/28/2023 12:25 PM CDT): Chronic, stable. No change to management. Trial of Seroquel may help with weight gain. Decreased appetite Has lost 25 lbs over the past couple of years (prior to job loss) Gradually happened. Wearing the same size clothes she wore this summer that she did last summer. Assessment & Plan (07/17/2022 10:36 AM ELECTRIC TRUCKER): Chronic, stable. No change to management. Trial of Seroquel may help with weight gain. Assessment & Plan (05/04/2022 4:33 PM CDT): Stable at this time. Smoking cessation when/if ready. Continue to monitor. Assessment & Plan (04/17/2022 11:40 AM CDT): Still not gaining weight. Assessment & Plan (04/03/2022 1:59 PM CDT): Chronic, persistent, currently 90 lb. Advised to continue to discuss with primary care physician. Continue to monitor. Remeron has not caused any weight gain. Still has an appetite. Not ready to quit smoking. Counseling provided Encounter for psychiatric assessment 12/22/2021 Assessment & Plan (12/22/2021 10:28 AM CDT): Psychiatric assessment was completed during the appointment today. All the paperwork completed by the patient was reviewed by me with the patient. All of the questions posed to me by the patient were answered. A treatment plan was developed in line with the information presented to me. Refer to specific problems for additional information regarding assessment and treatment recommendations. Sleep disturbance 12/22/2021 Assessment & Plan (09/01/2023 10:42 AM ELECTRIC TRUCKER): Chronic condition, currently stable. Advised the patient to focus on sleep hygiene. The patient does not report any worsening sleep-related difficulties at this time. Supportive, insight-oriented counseling provided. No change to treatment regimen at this time. Assessment & Plan (04/14/2023 11:39 AM CDT): Chronic condition, currently stable. Advised the patient to focus on sleep hygiene. The patient does not report any worsening sleep-related difficulties at this time. Supportive, insight-oriented counseling provided. No change to treatment regimen at this time. Assessment & Plan (01/28/2023 12:07 PM CDT): Chronic condition, currently stable. Advised the patient to focus on sleep hygiene. The patient does not report any worsening sleep-related difficulties at this time. Supportive, insight-oriented counseling provided. No change to treatment regimen at this time. Assessment & Plan (10/09/2022 11:11 AM ELECTRIC TRUCKER): Chronic condition, currently stable. Advised the patient to focus on sleep hygiene. The patient does not report any worsening sleep-related difficulties at this time. Supportive, insight-oriented counseling provided. No change to treatment regimen at this time. Assessment & Plan (09/17/2022 7:22 AM ELECTRIC TRUCKER): Chronic condition, currently stable. Advised the patient to focus on sleep hygiene. The patient does not report any worsening sleep-related difficulties at this time. Supportive, insight-oriented counseling provided. No change to treatment regimen at this time. Assessment & Plan (07/17/2022 10:37 AM ELECTRIC TRUCKER): Chronic, stable. No medication changes at this time. Continue to monitor at interval. Assessment & Plan (06/07/2022 1:17 PM CDT): Chronic, persistent. Focus on sleep hygiene. No change to management except for Ativan at this time. Assessment & Plan (05/27/2022 6:22 AM CDT): Chronic condition, currently stable. Advised the patient to focus on sleep hygiene. The patient does not report any worsening sleep-related difficulties at this time. Supportive, insight-oriented counseling provided. No change to treatment regimen at this time. Assessment & Plan (05/04/2022 4:34 PM CDT): Chronic, stable. Continue Remeron 30 mg HS. Focus on sleep hygiene. Continue to monitor. Assessment & Plan (04/03/2022 1:58 PM CDT): Chronic condition, currently stable. Advised the patient to focus on sleep hygiene. The patient does not report any worsening sleep-related difficulties at this time. Supportive, insight-oriented counseling provided. No change to treatment regimen at this time. Assessment & Plan (02/15/2022 4:20 PM CDT): Chronic, persistent, but functioning at or close to baseline. No change to management. Continue Remeron-increase dose to 30 mg HS. Continue to monitor. Assessment & Plan (12/22/2021 11:34 AM CDT): Increase sleep amount and quality - trial of Remeron. Monitor in 5 Breast cancer screening, high risk patient 10/23 Generalized anxiety disorder 09/13/2014 Assessment & Plan (11/13/2024 6:26 AM CDT): Acute on chronic condition with persistent symptoms. Medication changes today: Discontinue Effexor XR 37.5 mg daily - start Lexapro to 20 mg daily. Insight-oriented, supportive counseling provided. Continued management as discussed Assessment & Plan (08/23/2024 1:58 PM ELECTRIC TRUCKER): Acute on chronic condition with persistent symptoms. Medication changes today: Start Effexor XR 37.5 mg daily - decrease Lexapro to 10 mg daily. Insight-oriented, supportive counseling provided. Continued management as discussed Assessment & Plan (07/09/2024 10:15 PM ELECTRIC TRUCKER): Chronic condition with persistent symptoms. Medication changes today: none Insight-oriented, supportive counseling provided. Continued management as discussed Assessment & Plan (05/17/2024 9:32 AM CDT): Chronic condition with persistent symptoms. Medication changes today: none Insight-oriented, supportive counseling provided. Continued management as discussed Assessment & Plan (02/23/2024 10:51 AM CDT): Chronic condition with persistent symptoms. Medication changes today: none Insight-oriented, supportive counseling provided. Continued management as discussed Assessment & Plan (01/03/2024 6:18 PM CDT): Chronic condition with persistent symptoms. Medication changes today: Discontinue Lexapro 30 mg every day. Start Lexapro 20 mg every day. Insight-oriented, supportive counseling provided. Continued management as discussed Assessment & Plan (12/05/2023 6:41 PM CDT): Chronic condition with persistent symptoms. Medication changes today: none Insight-oriented, supportive counseling provided. Continued management as discussed Assessment & Plan (09/01/2023 10:42 AM ELECTRIC TRUCKER): Chronic condition with persistent symptoms. Medication changes today: none Insight-oriented, supportive counseling provided. Continued management as discussed Assessment & Plan (06/23/2023 10:12 AM ELECTRIC TRUCKER): Chronic condition with persistent symptoms. Medication changes today: none Insight-oriented, supportive counseling provided. Continued management as discussed Assessment & Plan (04/14/2023 11:39 AM CDT): Chronic condition with persistent symptoms. Medication changes today: none Insight-oriented, supportive counseling provided. Continued management as discussed Assessment & Plan (01/28/2023 12:07 PM CDT): Chronic condition with persistent symptoms. Medication changes today: see below Insight-oriented, supportive counseling provided. Continued management as discussed Assessment & Plan (12/14/2022 9:53 AM CDT): Chronic condition with persistent symptoms. Medication changes today: see below Insight-oriented, supportive counseling provided. Continued management as discussed Assessment & Plan (10/09/2022 11:08 AM ELECTRIC TRUCKER): Chronic condition with persistent symptoms. Medication changes today: Seroquel 25 mg + Bentyl 10 mg TID prn Insight-oriented, supportive counseling provided. Continued management as discussed Assessment & Plan (09/17/2022 7:24 AM ELECTRIC TRUCKER): Chronic condition with persistent symptoms. Medication changes today: None-continue Seroquel 12.5 mg p.o. b.i.d.-off-label use for anxiety and Lexapro 30 mg daily Insight-oriented, supportive counseling provided. Continued management as discussed Assessment & Plan (07/17/2022 10:38 AM ELECTRIC TRUCKER): Chronic condition with persistent symptoms. Medication changes today: Trial of Seroquel off label Insight-oriented, supportive counseling provided. Continued management as discussed Assessment & Plan (06/07/2022 1:17 PM CDT): Chronic condition with persistent symptoms. Continue with therapy. Prozac 20 mg daily Remeron 30 mg HS Insight-oriented, supportive counseling provided. Continued management as discussed Assessment & Plan (05/27/2022 6:23 AM CDT): Chronic condition with persistent symptoms. Slightly better with increased dose of Lexapro/switch back to Lexapro. Medication changes today: Atarax 10 mg up to 3 times daily as needed for moderate anxiety Try to Ativan for severe anxiety. Insight-oriented, supportive counseling provided. Continued management as discussed Assessment & Plan (05/04/2022 5:00 PM CDT): Chronic, persistent. Increase Lexapro to 30 mg daily. Ativan 0.5 mg BID prn - ok to take 15 extra per month. Continue to monitor. Assessment & Plan (04/03/2022 1:59 PM CDT): Chronic condition with persistent symptoms. Medication changes today: Trial of diazepam 5 mg 3 times daily as needed. Discontinue lorazepam. Insight-oriented, supportive counseling provided. Continued management as discussed Assessment & Plan (02/15/2022 4:20 PM CDT): Chronic condition with persistent symptoms. Medication changes today: Increase Remeron to 30 mg Insight-oriented, supportive counseling provided. Continued management as discussed Assessment & Plan (12/22/2021 10:32 AM CDT): Chronic condition, persistent. Medication changes today: Start Remeron 15 mg HS Supportive, insight-oriented counseling provided in the office today. Look for volunteer activity and walk 1 mile daily. Ongoing monitoring of treatment will be provided. The patient has been advised to contact the office for any concerns between now and next scheduled appointment. The patient verbalized an understanding of the plan developed today and agreed to follow up as recommended. Anxiety 10/29/2010 Resolved Problems Problem Noted Date Diagnosed Date Resolved Date Symptomatic cholelithiasis 05/10/2024 1 Abnormal biliary HIDA scan 05/09/2024 1 Assessment & Plan (05/09/2024 11:06 AM CDT): The patient's symptoms are consistent with chronic cholecystitis. We will set her up for cholecystectomy. We have discussed issues such as post cholecystectomy diarrhea. Postoperative restrictions also discussed. We will have her obtain medical clearance in preparation for surgery. Preadmission testing will be sent in. Consent to be obtained. All questions answered. Small intestinal bacterial overgrowth (SIBO) 3 04/21/2023 Encounters Date Type Department Care Team Description 11/21/2024 Results Follow-Up [facility] at [address] [phone] Aurelia Babin NP 11/20/2024 2:31 PM CDT - 11/20/2024 11:59 PM CDT Hospital Encounter [facility] [address] [place] [id number] Viral URI with cough Discharge Disposition: Discharge to home or self care 11/20/2024 2:15 PM CDT Office Visit [facility] at [address] [place] [address] Tamika Roberson PA Viral URI with cough (Primary Dx) 11/20/2024 Nurse Triage [facility] at [address] [phone] Israel Frazier MD 11/01/2024 10:00 AM CDT Office Visit [address] [phone] Pritesh Bright MD Generalized anxiety disorder (Primary Dx); Persistent depressive disorder 10/25/2024 1:30 PM CDT Office Visit [facility] at [address] [place] [phone] Raúl Rose NP Irritable bowel syndrome with both constipation and diarrhea (Primary Dx); Slow transit constipation; Redundant colon; Tubular adenoma of colon; Tobacco use disorder; Dyspepsia; Nausea without vomiting; Body mass index (BMI) less than 16.5 10/10/2024 Orders Only [address] [phone] Pritesh Bright MD Sarcopenia (Primary Dx); Underweight 09/19/[address] [phone] Pritesh Bright MD 09/18/2024 1:50 PM ELECTRIC TRUCKER Lab [address] [phone] Unintentional weight loss 09/18/2024 1:15 PM ELECTRIC TRUCKER Office Visit [facility] at [address] [phone] Gissel Argueta NP Acute bronchitis due to other specified organisms (Primary Dx); Unintentional weight loss 09/08/2024 Telephone [facility] [phone] [place] [phone] Pritesh Bright MD 09/05/2024 Telephone [facility] [id number] [place] [phone] Pritesh Bright MD from Last 3 Months Immunizations Immunization Administration Dates Next Due Influenza, Quad, Adjuvantate d, Intramuscular 06/09/2022,07/24/2021 Influenza, Quadrivalent, Albertina l Culture-based MDCK, Antibiotic Free, Intramuscular 05/26/2018 Influenza, Quadrivalent, Hig h Dose, Preservative Free, Intrr 05/16/2020 Influenza, Quadrivalent, Spl it, Intramuscular 06/02/2019 Influenza, Quadrivalent, Spl it, Preservative Free, Intramuscular 06/25/2023,06/13/2015 Influenza, Trivalent, IM (MDV) 08/09/2013 Influenza, Trivalent, Preser vative Free, Intramuscular 06/24/2016 Influenza, Trivalent, Recomb inant, Egg Free, Preservative Free, Antibiotic Free, IM (FLUBLOK) 06/26/2024 Influenza, Unspecified 06/26/2024,05/16/2020,06/2013 Pneumococcal Conjugate PCV 13 06/24/2020, 017 Pneumococcal Polysaccharide PPV23 06/03/2020,08/2016 Sars-cov-2 Covid-19 Mrna, Bi valent, Original/omicron Ba.1 06/26/2024 TD Preservative Free 08/09/2012 Td, Unspecified 08/09/2012 Surgical History Surgery Date Site/Laterality Comments VAGINAL DELIVERY 1980, 1982 BREAST LUMPECTOMY Right BREAST LUMPECTOMY Left COLONOSCOPY 08/09/2019 - 08/08/2020 COLONOSCOPY 04/07/2023 EAR SURGERY LAPAROSCOPIC CHOLECYSTECTOMY 05/22/2024 Medical History Medical History Date Comments Hx Other Medical ; Outc ome: 40W0D week 9lb(s) 3 oz Male Hx Other Medical ; Outc ome: 40W0D week 7lb(s) 14 oz Female Breast lump Comments:MTB 12/2014 Anxiety disorder Hx of adenomatous polyp of colon Hypertension Depression Osteopenia Osteoporosis Varicella Emphysema lung (HCC) Irritable bowel syndrome Symptomatic cholelithiasis 05/10/2024 Abnormal biliary HIDA scan 05/09/2024 Family History Medical History Relation Name Comments Diabetes Mother Diabetes mellit us; Heart disease Mother Heart disease; Hyperlipidemia Mother Hyperlipidemi a; Hypertension Mother Hypertension; Breast cancer Sister 1 Cancer, breast ; Diabetes Sister 2 Diabetes mellit us; Relation Name Status Comments Mother Sister 1 Sister 2 Social History Tobacco Use Types Packs/Day Years Used Date Smoking Tobacco: Every Day Cigarettes Smokeless Tobacco: Never Tobacco Cessation:Ready to Q uit: Yes; Counseling Given: Yes Comments:Smoking History Packs/day: 1 Packs Alcohol Use Standard Drinks/Week Comments No 0 (1 standard drink = 0.6 oz pur e alcohol) AUDIT-C Answer Date Recorded Q1: How often do you have a drink containing alc ohol? 2-3 times a week 10/25/2024 Q2: How many drinks containi ng alcohol do you have on a typical day when you are drinking? 1 or 2 10/25/2024 Q3: How often do you have si x or more drinks on one occasion? Never 10/25/2024 PHQ-2 Answer Date Recorded PHQ-2 Total Score 0 08/07/2024 PHQ-9 Answer Date Recorded PHQ-9 Total Score 0 08/07/2024 Personal Safety Answer Date Recorded Have you ever been in or are you currently in a harmful physical or emotional relationship or is someone making you feel afraid or unsafe? Denies 05/22/2024 Comments No Sex and Gender Information Value Date Recorded Sex Assigned at Not on file Legal Sex Female 1:02 AM ELECTRIC TRUCKER Gender Identity Not on file Sexual Orientation Not on file Obstetrics History Para Term AB IAB SAB Ectopic Multiple Livin g Live Births 2 2 2 2 2 Date Outcome GA Total Labor Labor/2nd/3rd Weight Sex Type Anes PTL Yamile A1 A5 Name Clin Term Vag-S pont Living Term Vag-S pont Living Last Filed Vital Signs Vital Sign Reading Time Taken Comments Blood Pressure 115/62 11/20/2024 2:05 PM CDT Pulse 88 11/20/2024 2:05 PM CDT Temperature 36.5 C (97.7 F) 11/20/2024 2:05 PM CDT Respiratory Rate 19 11/20/2024 2:05 PM CDT Oxygen Saturation 92% 11/20/2024 2:05 PM CDT Inhaled Oxygen Concentration - - Weight 39.9 kg (88 lb) 11/20/2024 2:05 PM CDT Height 157.5 cm (5' 2 ) 11/20/2024 2:05 PM CDT Body Mass Index 16.1 11/20/2024 2:05 PM CDT Plan of Treatment Health Maintenance Due Date Last Done Comments Zoster Vaccine (1 of 2) 2001 DTaP/Tdap/Td Vaccine (1 - Tdap) 08/10/2012 08/09/2012, 08/09/2012 Covid-19 Vaccine (7 - season) 2024 06/26/2024, 06/26/2024, 06/25/2023, Additional history exists Lung Cancer Screening 12/26/2024 Postpo sunny from 2001 (Provider's clinical decision) Well Visit 65+ 12/26/2024 12/27/2023, 12/22/2022 Fall Risk Assessment 05/10/2025 05/10/2024, 12/27/2023, 03/23/2023, Additional history exists Depression Screening 08/07/2025 08/07/2024, 08/07/2024, 12/27/2023, Additional history exists Breast Cancer Screening-Mammogram 08/21/2025 08/21/2024, 08/19/2023, 07/22/2022, Additional history exists Osteoporosis Screening-Bone Density Scan 01/06/2026 01/07/2024, 03/10/2018 Colon Cancer Screening-Colonoscopy 04/07/2033 04/07/2023 Pneumococcal vaccine 65+ Completed 020, 06/03/2020, 10/01/2016, Additional history exists Colon Cancer Screening-CT Colonography Discontinued 04/07/2023 Colon Cancer Screening-DNA Stool Discontinued 04/07/2023 Colon Cancer Screening-FIT Discontinued 04/07/2023, Colon Cancer Screening-Sigmoidoscopy Discontinued 04/07/2023 Influenza Vaccine Completed 06/26/2024, , 06/25/2023, Additional history exists Hepatitis B Screening Discontinued Hepatitis C Screening Discontinued Procedures Procedure Name Priority Date/Time Associated Diagnosis Comments XR CHEST PA LATERAL 2 VIEWS Schedule LAUREN, Read LAUREN (Appt Today, Awaiting Results) 11/20/2024 2:50 PM CDT Viral URI with cough THYROID FUNCTION CASCADE Routine 09/18/2024 1:53 PM ELECTRIC TRUCKER Unintentional weight loss SCREENING MAMMOGRAM BILATERAL W YOVANNY Schedule Routine, Read Routine (OP Routine) 08/21/2024 11:34 AM ELECTRIC TRUCKER Breast cancer screening, high risk patient Fibrocystic breast changes of both breasts Encounter for screening mammogram for malignant neoplasm of breast DEXA AXIAL SKELETON BONE DENSITY 1 OR MORE SITES Schedule Routine, Read Routine (OP Routine) 01/07/2024 10:08 AM CDT Asymptomatic menopausal state COLONOSCOPY 04/07/2023 11:20 AM CDT from Last 3 Months or Most Recently Relevant to Health Maintenance Results * XR Chest Pa Lateral 2 Views (11/20/2024 2:50 PM CDT) Anatomical Region Laterality Modality Body, Chest N/A Computed Radiogr aphy 11/21/2024 2:43 AM CDT Narrative 11/21/2024 2:44 AM CDT EXAM DESCRIPTION: XR CHEST PA LATERAL 2 VIEWS REASON FOR STUDY: cough Sob,cough for 2 days hx of emphysema no surg TECHNIQUE: Frontal and lateral radiographic views of the chest acquired. COMPARISON: Chest x-ray of July 25, 2024. FINDINGS: LUNGS/PLEURA: Lungs are hyperexpanded and hyperlucent with flattening of the hemidiaphragms bilaterally, unchanged. HEART/MEDIASTINUM: Cardiac silhouette is normal. Remaining mediastinal silhouettes are unremarkable. HARDWARE/LINES/TUBES: None. BONES: No acute findings. IMPRESSION: COPD. No acute cardiopulmonary abnormality. THIS IS AN ELECTRONICALLY VERIFIED FINAL REPORT 11/21/2024 2:44 AM - Electronically signed by Francia Magana M.D. SN: SN Report ID: [id number] Reading Location: [id number] Procedure Note Francia Magana MD - 11/21/2024 EXAM DESCRIPTION: XR CHEST PA LATERAL 2 VIEWS REASON FOR STUDY: cough Sob,cough for 2 days hx of emphysema no surg TECHNIQUE: Frontal and lateral radiographic views of the chest acquired. COMPARISON: Chest x-ray of July 25, 2024. FINDINGS: LUNGS/PLEURA: Lungs are hyperexpanded and hyperlucent with flattening ofthe hemidiaphragms bilaterally, unchanged. HEART/MEDIASTINUM: Cardiac silhouette is normal. Remaining mediastinal silhouettes are unremarkable. HARDWARE/LINES/TUBES: None. BONES: No acute findings. IMPRESSION: COPD. No acute cardiopulmonary abnormality. THIS IS AN ELECTRONICALLY VERIFIED FINAL REPORT 11/21/2024 2:44 AM - Electronically signed by Francia Magana M.D. SN: SN Report ID: [id number] Reading Location: [id number] Tamika FUENTES IMG XR PROCEDURES F inal Result * Thyroid Function [place] (09/18/2024 1:53 PM ELECTRIC TRUCKER) TSH 1.47 0.30 - 4.20 mcIUnit/mL Blood 09/18/2024 1:53 PM ELECTRIC TRUCKER 09/18/2024 6:13 PM ELECTRIC TRUCKER Gissel Argueta TRUCKLOAD OWNER OPERATOR LAB BLOOD ORDERABLES Final Result [facility] [id number] [place] [address] * Screening Mammogram Bilateral W Yovanny (08/21/2024 11:34 AM ELECTRIC TRUCKER) Anatomical Region Laterality Modality Breast Bilateral Mammography Narrative 08/21/2024 2:01 PM ELECTRIC TRUCKER Mammogram Technique: Bilateral Digital Breast Tomosynthesis, Bilateral C-view 2D Screening mammogram. Views obtained: bilateral craniocaudal and bilateral mediolateral oblique. Computer Aided Detection was performed. Mammogram Findings: The present examination has been compared to prior imaging studies performed at [facility] on 07/29/2021, 07/22/2022 and 08/19/2023. The breasts are extremely dense, which lowers the sensitivity of mammography. There is no suspicious abnormality in either breast. Impression: There is no mammographic evidence of malignancy. Annual screening mammography is recommended. Consider breast MRI for supplemental screening given the patient's extremely dense breast tissue. OVERALL FINAL ASSESSMENT: BI-RADS CATEGORY 1: Negative. Procedure Note Ninoska Fitzgerald MD - 08/21/2024 Mammogram Technique: Bilateral Digital Breast Tomosynthesis, Bilateral C-view 2D Screening mammogram. Views obtained: bilateral craniocaudal and bilateral mediolateral oblique. Computer Aided Detection was performed. Mammogram Findings: The present examination has been compared to prior imaging studies performed at [facility] on 07/29/2021, 07/22/2022 and 08/19/2023. The breasts are extremely dense, which lowers the sensitivity of mammography. There is no suspicious abnormality in either breast. Impression: There is no mammographic evidence of malignancy. Annual screening mammography is recommended. Consider breast MRI for supplemental screening given the patient's extremely dense breasttissue. OVERALL FINAL ASSESSMENT: BI-RADS CATEGORY 1: Negative. 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 FINDINGS: AP LUMBAR SPINE L1-L4: Total BMD is 0.982 g/cm2 T-score is -0.6 LEFT HIP: Total BMD is 0.663 g/cm2 T-score is -2.3 Femoral neck BMD is 0.578 g/cm2 T-score is -2.4 FRAX: 10 year risk for a major osteoporotic fracture is 12 %, 10 year risk for a hip fracture is 4.9 % IMPRESSION: Low Bone Mass. REFERENCE: Bone mineral density: T-Score: Normal (T-score above or = -1.0) Low bone mass (T-score between -1.0 and -2.5) replaces the previously used term osteopenia Osteoporosis (T-score = or below -2.5) Z-Score: Within the expected range for age (Z-score above -2.0) Below the expected range for age (Z-score is -2.0 or below) Please see below follow up recommendations. Medical evaluation for secondary causes of low bone mineral density may be appropriate. FRAX is a World Health Organization validated fracture risk assessment tool that calculates a person's 10 year probability of a major osteoporosis related fracture and hip fracture. According to the National Osteoporosis Foundation guidelines, postmenopausal women and men age 50 or older with low bone mass and a 10 year probability of a major osteoporosis related fracture = or greater than 20% or a 10 year probability of a hip fracture = or greater than 3% should be considered for pharmacological treatment for the prevention of osteoporosis. For further information, including treatment recommendations, please refer to the 2019 ISCD Official Positions (http://www.iscd.org) and the NOF's Clinician's Guide to Prevention and Treatment of Osteoporosis (http://www.nof.org/professionals/clinical-guidelines) THIS IS AN ELECTRONICALLY VERIFIED FINAL REPORT 01/07/2024 10:33 PM - Electronically signed by Juan Antonio Mendoza M.D. 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 FINDINGS: AP LUMBAR SPINE L1-L4: Total BMD is 0.982 g/cm2 T-score is -0.6 LEFT HIP: Total BMD is 0.663 g/cm2 T-score is -2.3 Femoral neck BMD is 0.578 g/cm2 T-score is -2.4 FRAX: 10 year risk for a major osteoporotic fracture is 12 %, 10 year risk for ahip fracture is 4.9 % IMPRESSION: Low Bone Mass. REFERENCE: Bone mineral density: T-Score: Normal (T-score above or = -1.0) Low bone mass (T-score between -1.0 and -2.5) replaces thepreviously used term osteopenia Osteoporosis (T-score = or below -2.5) Z-Score: Within the expected range for age (Z-score above -2.0) Below the expected range for age (Z-score is -2.0 or below) Please see below follow up recommendations. Medical evaluation forsecondary causes of low bone mineral density may be appropriate. FRAX is a World Health Organization validated fracture risk assessmenttool that calculates a person's 10 year probability of a major osteoporosisrelated fracture and hip fracture. According to the National OsteoporosisFoundation guidelines, postmenopausal women and men age 50 or older with low bonemass and a 10 year probability of a major osteoporosis related fracture = or greater than 20% or a 10 year probability of a hip fracture = or greaterthan 3% should be considered for pharmacological treatment for the preventionof osteoporosis. For further information, including treatment recommendations, please referto the 2019 ISCD Official Positions (http://www.iscd.org) and the NOF's Clinician's Guide to Prevention and Treatment of Osteoporosis (http://www.nof.org/professionals/clinical-guidelines) THIS IS AN ELECTRONICALLY VERIFIED FINAL REPORT 01/07/2024 10:33 PM - Electronically signed by Juan Antonio Mendoza M.D. MF: [email or web address] Report ID: [id number] Reading Location: [place] [address] Israel Frazier MD IMG DXA PROCEDURES Fi nal Result * COLONOSCOPY (04/07/2023 11:20 AM CDT) Anatomical Region Laterality Modality Other Narrative Procedure Note Snow Del Castillo MD - 04/07/2023 11:20 AM CDT [facility] Patient Name: Jaskaran Segal Procedure Date: 04/07/2023 11:20 AM Date of : 1950 Admit Type: Outpatient Age: 72 Gender: Female Attending MD: Snow Del Castillo M.D. Room: [facility] ENDOSCOPY ROOM 1 Note Status: Finalized Patient Profile: This is a 72 year old female. Patient hasunexplained episodes of diarrhea and progressive weight loss.No family history of colon cancer. Procedure: Colonoscopy Indications: Last colonoscopy: 2019, Clinically significant diarrhea of unexplained origin, Weight loss Referring MD: Israel Frazier M.D. Providers: Snow Del Castillo M.D. Impression: - Diverticulosis in the colon - The entire examined colon is normal otherwise. Biopsied. - Internal hemorrhoids. Recommendation: - Await pathology results. - Repeat colonoscopy in 5-10 years for screening purposes. - Schedule pelvic ultrasound Medicines: Monitored Anesthesia Care Complications: No immediate complications. Estimated Blood Loss: Estimated blood loss: none. Procedure: Pre-Anesthesia Assessment: - Prior to the procedure, a History and Physicalwas performed, and patient medications and allergieswere reviewed. The patient's tolerance of previous anesthesia was also reviewed. The risks andbenefits of the procedure and the sedation options and risks were discussed with the patient. All questions were answered, and informed consent was obtained. Prior Anticoagulants: The patient has taken noanticoagulant or antiplatelet agents. ASA Grade Assessment: Per anesthesia note and evaluation. After reviewing the risks and benefits, the patient was deemed in satisfactory condition to undergo the procedure. The benefits, risks and alternatives of theprocedure and sedation were discussed and informed consentwas obtained. All questions were answered. Please referto the signed informed consent document in the medical record. The bowel preparation used was Miralax and bisacodyl tablets via split dose instruction. The scope was passed under direct vision. The Pediatric Colonoscope [id number]-H190L [id number] was introducedthrough the anus and advanced to the the cecum, identifiedby appendiceal orifice and ileocecal valve. The scopewas passed under direct vision. The Endoscope [id number]-[id number] was introduced through the and advancedto the. The quality of the bowel preparation was good. Bowel prep was administered using a split dose. Findings: The perianal and digital rectal examinations were normal. Enlarged uterus noted on examination The cecum appeared normal. The colon (entire examined portion) appeared normal overall. Biopsies were taken with a cold forceps for histology. Scattered small to medium-sized diverticula noted in the entire colon. The colon is the redundant and tortuous. Internal hemorrhoids were found during retroflexion. The hemorrhoids were small. Electronically signed by Snow Del Castillo M.D. Snow Del Castillo M.D. 04/07/2023 3:33:46 PM Number of Addenda: 0 Note Initiated On: 04/07/2023 11:20 AM Procedure Code(s): --- Professional --- 10900, Colonoscopy, flexible; with biopsy, single or multiple Diagnosis Code(s): --- Professional --- K64.8, Other hemorrhoids R19.7, Diarrhea, unspecified R63.4, Abnormal weight loss CPT copyright 2020 [employer]. All rights reserved. The codes documented in this report are preliminary and upon tobacco sample puller reviewmay be revised to meet current compliance requirements. Recognized by the [employer] for promoting quality in endoscopy Snow Del Castillo MD ENDOSCOPY PROCEDURES Final Result from Last 3 Months or Most Recently Relevant to Health Maintenance Insurance MEDICARE [facility] MEDICARE SUPPLEMENT MEDICARE [facility] MEDICARE SUPPLEMENT Advance Directives For more information, please contact: [phone] * Full Code (Latest Code Status on File) Date Activated Date Inactivated Comments 04/07/2023 11:45 AM 04/07/2023 7:55 PM * Full Code Date Activated Date Inactivated Comments 04/07/2023 11:44 AM 04/07/2023 11:45 AM * Full Code Date Activated Date Inactivated Comments 03/23/2023 1:10 PM 03/23/2023 7:30 PM Care Teams 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 Relationship Specialty [place] [id number] [facility] [address] [place] [address] PCP - General Family Medicine 09/24/22 [place] [id number] [facility] [address] [place] [address] Nurse Practitioner Gastroenterology 04/04/23 [place] [address] [facility] [address] [place] [address] Nurse Practitioner Pain Management 10/13/23 Bola Logan MD [facility] [address] Consulting Physician Neurosurgery 12/06/23 Shirley Callahan MD [address] [place] [address] Consulting Physician Pain Management 12/06/23
--- OUTSIDE RECORDS SUMMARY | 2024-11-30 13:03 | XMS_ITS | Referral Summary ---
Author Organization [facility] Virtual Care Address [facility] [place] [address] Phone Care Team Providers Care Womens Health Nurse Practitioner Name Role Phone Israel Frazier MD Primary Care Provide r Raúl Rose NP Unavailable [phone] Marlen Esposito NP Unavailable [phone] Bola Logan MD Unavailable Shirley Callahan MD Unavailable [phone] Encounters Date Type Department Care Team Description 11/21/2024 Results Follow-Up [facility] at [address] [place] [address] Aurelia Babin NP 11/20/2024 Nurse Triage Family Care at [address] [address] Israel Frazier MD 11/20/2024 2:31 PM CDT - 11/20/2024 11:59 PM CDT Hospital Encounter [facility] [address] [place] [address] Viral URI with cough Discharge Disposition: Discharge to home or self care 11/20/2024 2:15 PM CDT Office Visit [facility] at [address] [place] [address] Tamika Roberson PA Viral URI with cough (Primary Dx) 11/01/2024 10:00 AM CDT Office Visit [address] [phone] Pritesh Bright MD Generalized anxiety disorder (Primary Dx); Persistent depressive disorder 10/25/2024 1:30 PM CDT Office Visit [facility] Gastroenterology at [address] [place] [address] Raúl Rose NP Irritable bowel syndrome with both constipation and diarrhea (Primary Dx); Slow transit constipation; Redundant colon; Tubular adenoma of colon; Tobacco use disorder; Dyspepsia; Nausea without vomiting; Body mass index (BMI) less than 16.5 10/10/2024 Orders Only [address] [phone] Pritesh Bright MD Sarcopenia (Primary Dx); Underweight 09/19/[address] [address] Pritesh Bright MD 09/18/2024 1:50 PM PRODUCT SAFETY MANAGER Lab [address] [place] [address] Unintentional weight loss 09/18/2024 1:15 PM PRODUCT SAFETY MANAGER Office Visit Family Care at [address] [place] [address] Gissel Argueta NP Acute bronchitis due to other specified organisms (Primary Dx); Unintentional weight loss 09/08/[address] [phone] Pritesh Bright MD 09/05/[address] [address] Pritesh Bright MD from Last 3 Months Allergies No known active allergies Medications simethicone [...] needed for nausea or vomiting 20 tablet 5 10/26/19 25 Active escitalopram (Lexapro) 20 mg tablet Take 1 tablet (20 mg total) by mouth daily 30 tablet 11/02/19 25 026 Active venlafaxine XR (EFFEXOR-XR) 37.5 mg 24 hr capsule Take 1 capsule (37.5 mg total) by mouth daily 30 capsule 08/23/19 025 Discontinued escitalopram (Lexapro) 10 mg tablet Take 1 tablet (10 mg total) by mouth daily 30 tablet 08/23/19 025 Discontinued Active Problems Problem Noted Date Diagnosed Date Dyspepsia 10/25/2024 Acute bronchitis due to other specified organism s 09/18/2024 Grief 08/24/2024 Assessment & Plan (08/24/2024 8:26 AM PRODUCT SAFETY MANAGER): Recent of her sister by lung cancer. Empathy and validation provided. Underweight 06/28/2024 Recurrent major depressive disorder, in partial remission 06/28/2024 S/P laparoscopic cholecystectomy 05/30/2024 Sarcopenia 03/04/2024 Assessment & Plan (07/09/2024 10:16 PM PRODUCT SAFETY MANAGER): Physical therapy referral provided. Assessment & Plan [...] interval. Assessment & Plan (08/23/2024 10:18 AM PRODUCT SAFETY MANAGER): Chronic condition, stable symptoms. Continue current management. Monitor at interval. Assessment & Plan (07/09/2024 10:15 PM PRODUCT SAFETY MANAGER): Chronic condition, stable symptoms. Continue current management. [...] 05/04/2022 Assessment & Plan (09/01/2023 10:42 AM PRODUCT SAFETY MANAGER): Chronic, stable. Depressive symptoms are well controlled on current medication regimen. Tolerating medications without any reported side effects. The patient denies active suicidal and homicidal ideation. The following changes were made at today's appointment: none Reevaluate treatment/symptoms at interval per scheduled appointment. Assessment & Plan (06/23/2023 10:12 AM PRODUCT SAFETY MANAGER): Chronic, stable. Depressive symptoms are well controlled [...] appointment. Assessment & Plan (10/09/2022 11:04 AM PRODUCT SAFETY MANAGER): Chronic, stable. Depressive symptoms are well controlled on current medication regimen. Tolerating medications without any reported side effects. The patient denies active suicidal and homicidal ideation. The following changes were made at today's appointment:none Reevaluate treatment/symptoms at interval per scheduled appointment. Assessment & Plan (09/17/2022 7:25 AM PRODUCT SAFETY MANAGER): Chronic condition, persistent symptoms, but functioning at or close to baseline at this time. Symptoms are reasonably well controlled on current medication regimen. The patient does not endorse any active suicidal ideation. Medication changes today: None Ongoing management to be provided as discussed and at interval as planned. Assessment & Plan (07/17/2022 10:39 AM PRODUCT SAFETY MANAGER): Chronic, stable. Depressive symptoms are well controlled [...] summer. Assessment & Plan (07/17/2022 10:36 AM PRODUCT SAFETY MANAGER): Chronic, stable. No change to management. Trial [...] 12/22/2021 Assessment & Plan (09/01/2023 10:42 AM PRODUCT SAFETY MANAGER): Chronic condition, currently stable. Advised the patient [...] time. Assessment & Plan (10/09/2022 11:11 AM PRODUCT SAFETY MANAGER): Chronic condition, currently stable. Advised the patient to focus on sleep hygiene. The patient does not report any worsening sleep-related difficulties at this time. Supportive, insight-oriented counseling provided. No change to treatment regimen at this time. Assessment & Plan (09/17/2022 7:22 AM PRODUCT SAFETY MANAGER): Chronic condition, currently stable. Advised the patient to focus on sleep hygiene. The patient does not report any worsening sleep-related difficulties at this time. Supportive, insight-oriented counseling provided. No change to treatment regimen at this time. Assessment & Plan (07/17/2022 10:37 AM PRODUCT SAFETY MANAGER): Chronic, stable. No medication changes at this [...] discussed Assessment & Plan (08/23/2024 1:58 PM PRODUCT SAFETY MANAGER): Acute on chronic condition with persistent symptoms. Medication changes today: Start Effexor XR 37.5 mg daily - decrease Lexapro to 10 mg daily. Insight-oriented, supportive counseling provided. Continued management as discussed Assessment & Plan (07/09/2024 10:15 PM PRODUCT SAFETY MANAGER): Chronic condition with persistent symptoms. Medication changes [...] discussed Assessment & Plan (09/01/2023 10:42 AM PRODUCT SAFETY MANAGER): Chronic condition with persistent symptoms. Medication changes today: none Insight-oriented, supportive counseling provided. Continued management as discussed Assessment & Plan (06/23/2023 10:12 AM PRODUCT SAFETY MANAGER): Chronic condition with persistent symptoms. Medication changes [...] discussed Assessment & Plan (10/09/2022 11:08 AM PRODUCT SAFETY MANAGER): Chronic condition with persistent symptoms. Medication changes today: Seroquel 25 mg + Bentyl 10 mg TID prn Insight-oriented, supportive counseling provided. Continued management as discussed Assessment & Plan (09/17/2022 7:24 AM PRODUCT SAFETY MANAGER): Chronic condition with persistent symptoms. Medication changes today: None-continue Seroquel 12.5 mg p.o. b.i.d.-off-label use for anxiety and Lexapro 30 mg daily Insight-oriented, supportive counseling provided. Continued management as discussed Assessment & Plan (07/17/2022 10:38 AM PRODUCT SAFETY MANAGER): Chronic condition with persistent symptoms. Medication changes [...] Small intestinal bacterial overgrowth (SIBO) 3 04/21/2023 Immunizations Immunization Administration Dates Next Due Influenza, [...] TD Preservative Free 08/09/2012 Td, Unspecified 08/09/2012 Social History Tobacco Use Types Packs/Day Years [...] on file Legal Sex Female 1:02 AM PRODUCT SAFETY MANAGER Gender Identity Not on file Sexual Orientation Not on file Last Filed Vital Signs Vital Sign Reading [...] 11/20/2024 2:05 PM CDT Plan of Treatment Not on file Procedures Procedure Name Priority Date/Time Associated Diagnosis Comments XR CHEST PA LATERAL 2 VIEWS Schedule LAUREN, Read LAUREN (Appt Today, Awaiting Results) 11/20/2024 2:50 PM CDT Viral URI with cough THYROID FUNCTION CASCADE Routine 09/18/2024 1:53 PM PRODUCT SAFETY MANAGER Unintentional weight loss SCREENING MAMMOGRAM BILATERAL W YOVANNY Schedule Routine, Read Routine (OP Routine) 08/21/2024 11:34 AM PRODUCT SAFETY MANAGER Breast cancer screening, high risk patient Fibrocystic [...] Francia Magana M.D. SN: SN Report ID: [id number] Reading Location: [id number] Procedure Note Francia Magana MD - 11/21/2024 [...] Francia Magana M.D. SN: SN Report ID: [id number] Reading Location: [id number] Tamika Roberson PA IMG XR PROCEDURES F inal Result * Thyroid Function [place] (09/18/2024 1:53 PM PRODUCT SAFETY MANAGER) TSH 1.47 0.30 - 4.20 mcIUnit/mL Blood 09/18/2024 1:53 PM PRODUCT SAFETY MANAGER 09/18/2024 6:13 PM PRODUCT SAFETY MANAGER us Gissel Argueta NP LAB BLOOD ORDERABLES Final Result [facility] [id number] [address] Department [place] [address] * Screening Mammogram Bilateral W Yovanny (08/21/2024 11:34 AM PRODUCT SAFETY MANAGER) Anatomical Region Laterality Modality Breast Bilateral Mammography Narrative 08/21/2024 2:01 PM PRODUCT SAFETY MANAGER Mammogram Technique: Bilateral Digital Breast Tomosynthesis, Bilateral C-view 2D Screening mammogram. Views obtained: bilateral craniocaudal and bilateral mediolateral oblique. Computer Aided Detection was performed. Mammogram Findings: The present examination has been compared to prior imaging studies performed at [facility] on 07/29/2021, 07/22/2022 and 08/19/2023. The breasts [...] compared to prior imaging studies performed at [facility] on 07/29/2021, 07/22/2022 and 08/19/2023. The breasts are extremely dense, which lowers the sensitivity of mammography. There is no suspicious abnormality in either breast. Impression: There is no mammographic evidence of malignancy. Annual screening mammography is recommended. Consider breast MRI for supplemental screening given the patient's extremely dense breasttissue. OVERALL FINAL ASSESSMENT: BI-RADS CATEGORY 1: Negative. 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 MF: TERRY Report ID: [id number] Reading Location: [place] [address] us Israel Frazier MD IM DXA PROCEDURES Fi nal Result * COLONOSCOPY (04/07/2023 11:20 AM CDT) Anatomical Region Laterality Modality Other Narrative Procedure Note Snow Del Castillo MD - 04/07/2023 11:20 AM CDT [facility] Patient Name: Jaskaran Segal Procedure Date: 04/07/2023 11:20 AM Date of : 1950 Admit Type: Outpatient Age: 72 Gender: Female Attending MD: Snow Del Castillo M.D. Room: [facility] ENDOSCOPY ROOM 1 Note Status: Finalized Patient [...] under direct vision. The Pediatric Colonoscope [id number]-H190L [id number] was introducedthrough the anus and advanced to the the cecum, identifiedby appendiceal orifice and ileocecal valve. The scopewas passed under direct vision. The Endoscope GIF-H190 [id number] was introduced through the and advancedto the. [...] 11:20 AM Procedure Code(s): --- Professional --- 79736, Colonoscopy, flexible; with biopsy, single or multiple Diagnosis Code(s): --- Professional --- K64.8, Other hemorrhoids R19.7, Diarrhea, unspecified R63.4, Abnormal weight loss CPT copyright 2020 [employer]. All rights reserved. The codes documented in this report are preliminary and upon eligibility analyst reviewmay be revised to meet current compliance requirements. Recognized by the [employer] for promoting quality in endoscopy Snow Del Castillo MD ENDOSCOPY PROCEDURES Final Result from Last 3 Months or Most Recently Relevant to Health Maintenance Insurance MEDICARE [facility] MEDICARE SUPPLEMENT MEDICARE BLUE CROSS MEDICARE SUPPLEMENT Advance Directives For more information, please contact: [phone] * Full Code (Latest Code Status on File) Date Activated Date Inactivated Comments 04/07/2023 11:45 AM 04/07/2023 7:55 PM * Full Code Date Activated Date Inactivated Comments 04/07/2023 11:44 AM 04/07/2023 11:45 AM * Full Code Date Activated Date Inactivated Comments 03/23/2023 1:10 PM 03/23/2023 7:30 PM Care Teams Womens Health Nurse Practitioner Relationship Specialty [place] [address] [address] [facility] [address] [place] [address] PCP - General Family Medicine 09/24/22 Raú[place] [address] [address] [facility] [address] [place] [address] Nurse Practitioner Gastroenterology 04/04/23 [place] [address] [address] [facility] [address] [place] [address] Nurse Practitioner Pain Management 10/13/23 Bola Logan MD [address] [address] Consulting Physician Neurosurgery 12/06/23 Shirley Callahan MD [address] [place] [address] Consulting Physician Pain Management 12/06/23
--- OUTSIDE RECORDS SUMMARY | 2024-11-30 13:03 | XMS_ITS | Encounter Summary ---
Author Organization [facility] Healthcare Address [address] [place] [address] Care Team Providers Care Bending Machine Operator Name Role Phone Israel Frazier MD Primary Care Provide r Raúl Rose BOWLING BALL GRADER Unavailable + [phone] Marlen Esposito NP Unavailable [phone] Bola Logan MD Unavailable [phone] Shirley Callahan MD Unavailable [phone] Encounter Details Date Type Department Care Team (Late st Contact Info) Description 11/21/2024 Results Follow-Up [facility] Medical [facility] Convenient Care at [address] [place] [address] Aurelia Babin, BOWLING BALL GRADER [address] [facility] [address] [place] [id number] Social History Tobacco Use Types Packs/Day Years Used Date Smoking Tobacco: Every Day Cigarettes Smokeless Tobacco: Never Comments:Smoking History Pac ks/day: 1 Packs Alcohol Use Standard Drinks/Week Comments [...] on file Legal Sex Female 1:02 AM 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 AND DIE ASSEMBLER Gender Identity Not on file Sexual Orientation Not on file documented as of this encounter Miscellaneous Notes * Result Encounter Note - Niya Delgado MA - 11/21/2024 10:47 AM CDT Spoke with patient * Result Encounter Note - Aurelia Babin NP - 11/21/2024 8:23 AM CDT Call pt regarding normal result- no pneumonia documented in this encounter Plan of Treatment Not on file documented as of this encounter Visit Diagnoses Not on filedocumented in this encounter Care Teams Bending Machine Operator Relationship Specialty [place] [address] [address] PCP - General Family Medicine 09/24/22 Raú[place] [address] [address] Nurse Practitioner Gastroenterology 04/04/23 [place] [address] [address] Nurse Practitioner Pain Management 10/13/23 Bola Logan MD [address] [address] Consulting Physician Neurosurgery 12/06/23 Shirley Callahan MD [address] [place] [address] Consulting Physician Pain Management 12/06/23 documented as of this encounter
== END 2024-11-30 11:24 | disposition home or self-care (01) ==
PROVIDERS: Visit Provider Neurological Surgery
DX: N20.0 Calculus of kidney (principal)
CPT/HCPCS: 74018